=== PATIENT | male | born 1985 | race Caucasian/White ===

== ENCOUNTER 2016-06-17 14:34 | Emergency (ER) | payer MEDICAID, SELFPAY ==
[~2016-06-17 14:34] MED LIST: CIPR25SS PO; FLAG500T OR; PAXI20TA3 PO; TUMS500C OR; no home meds
--- NOTE | 2016-06-17 15:30 | EDDOCDS ---
Physician Documentation [facility] Name: Nabor Melendez Age: 30 yrs Sex: Male : 1985 Arrival Date: 06/17/2016 Time: 14:34 Bed 13 Private MD: NO PRIMARY PHYSICIAN, . Disposition: 06/17/16 15:12 Discharged to Home/Self Care. Impression: Acute upper respiratory infection, unspecified. - Condition is Stable. - Discharge Instructions: Upper Respiratory Infection, Adult, Cough, Adult. - Prescriptions for Doxycycline Hyclate 100 mg Oral Tablet - take 1 tablet by ORAL route every 12 hours; 14 tablet. Mucinex 600 mg Oral - take 1 tablet by ORAL route 2 times per day; 14 tablet. - Medication Reconciliation, Local Pharmacy Hours, Work Release Form - 1 day form. - Follow up: Silvana Youngblood; When: 2 - 3 days; Reason: Recheck today's complaints. - Problem is an ongoing problem. - Symptoms have worsened. - Notes: You were seen in the ED for cough ongoing for the past month. Lung examination was otherwise normal at this time. You may take the antibiotics as written. Use a cough suppressant like Robitussin and a mucolytic like Mucinex as needed. Call your primary doctor to arrange to be seen for recheck this week. Return to the ED for any trouble breathing, fever, or any other concerns. Historical: - Allergies: Sudafed (hallucinate); - Home Meds: 1. methadone 90mg Oral tab once daily - PMHx: Cholecystitis; - PSHx: ortho surgery on fingers; hand fracture repair; - Social history: Smoking status: Patient uses tobacco products, heavy tobacco smoker. No barriers to communication noted, The patient speaks fluent Cymraes, Speaks appropriately for age. - Family history: Not pertinent. - : The pt / caregiver states he / she is not on anticoagulants. Home medication list is obtained from the patient. - Exposure Risk Screening:: None identified. Vital Signs: 06/17 14:36 BP 151 / 88; Pulse 66; Resp 18 S; Temp 98.0(O); Pulse Ox 99% on R/A; Weight 79.38 kg / gr2 175 lbs (R); Height 5 ft. 10 in. (177.80 cm) (R); Pain 4/10; 14:36 Body Mass Index 25.11 (79.38 kg, 177.80 cm) gr2 Signatures: Karen Cueto RN RN jo3 Holger Ortiz MD MD br1 Maria Eugenia Kumar RN RN dsf SANJAYD
--- NOTE | 2016-06-17 15:30 | EDDOCDS ---
Nurse's Notes [facility] Name: Nabor Melendez Age: 30 yrs Sex: Male : 1985 Arrival Date: 06/17/2016 Time: 14:34 Bed 13 Private MD: NO PRIMARY PHYSICIAN, . Diagnosis: Acute upper respiratory infection, unspecified Presentation: 06/17 14:39 Presenting complaint: Patient states: Has a congested cough and nasal infection. Had jo3 some left over amoxicillin and took it but is out. Adult Sepsis Screening: The patient does not have new or worsening altered mentation. Patient's respiratory rate is less than 22. Systolic blood pressure is greater than 100. Patient has a qSOFA score of 0- Negative Sepsis Screen. Suicide/Homicide risk assessment- the patient denies having any suicidal and/or homicidal ideations and does not present with any other emotional, behavioral or mental health complaints. Status: Patient is not a auto servicer or dependent. Transition of care: patient was not received from another setting of care. 14:39 Acuity: MENDY Level 4 jo3 14:39 Method Of Arrival: Walkin/Carried/Asstd jo3 Triage Assessment: 14:40 General: Appears in no apparent distress, Behavior is appropriate for age, cooperative. jo3 HIV screening NA for this visit. Neurological: Level of Consciousness is awake, alert, Oriented to person, place, time. Respiratory: Airway is patent Respiratory effort is even, unlabored. Historical: - Allergies: Sudafed (hallucinate); - Home Meds: 1. methadone 90mg Oral tab once daily - PMHx: Cholecystitis; - PSHx: ortho surgery on fingers; hand fracture repair; - Social history: Smoking status: Patient uses tobacco products, heavy tobacco smoker. No barriers to communication noted, The patient speaks fluent Ecuadorean, Speaks appropriately for age. - Family history: Not pertinent. - : The pt / caregiver states he / she is not on anticoagulants. Home medication list is obtained from the patient. - Exposure Risk Screening:: None identified. Screenin:28 Screening information is obtained from the patient. Fall risk: No risks identified. dsf Assistance ADL's: requires no assistance with activities of daily living. Abuse/DV Screen: The patient / caregiver reports he/she is: not in a situation that causes fear, pain or injury. Nutritional screening: No deficits noted. Advance Directives: Currently, there is no health care proxy. home support is adequate. Assessment: 15:28 Adult Sepsis Screening: The patient does not have new or worsening altered mentation. dsf Patient's respiratory rate is less than 22. Systolic blood pressure is greater than 100. Patient has a qSOFA score of 0- Negative Sepsis Screen. General: Appears in no apparent distress, Behavior is appropriate for age, cooperative. Pain: Denies pain. Neurological: Level of Consciousness is awake, alert, Oriented to person, place, time. Cardiovascular: Capillary refill < 3 seconds Heart tones S1 S2 present. Respiratory: Airway is patent Respiratory effort is even, unlabored, Respiratory pattern is regular, symmetrical, Breath sounds are clear bilaterally. Reports cough that is non-productive, since 1 month ago Denies shortness of breath. GI: Abdomen is non- distended Bowel sounds present X 4 quads. Abd is soft and non tender X 4 quads. Derm: Skin is pink, warm & dry. Vital Signs: 14:36 BP 151 / 88; Pulse 66; Resp 18 S; Temp 98.0(O); Pulse Ox 99% on R/A; Weight 79.38 kg gr2 (R); Height 5 ft. 10 in. (177.80 cm) (R); Pain 4/10; 14:36 Body Mass Index 25.11 (79.38 kg, 177.80 cm) gr2 Vitals: 14:36 Log In Time: June 17, 2016 at 14:36. gr2 ED Course: 14:35 Patient visited by Kumar Oneal. gr2 14:35 NO PRIMARY PHYSICIAN, . is Private Physician. gr2 14:35 Patient moved to Waiting gr2 14:37 Patient visited by Kumar Oneal. gr2 14:37 Patient moved to Pre RCE gr2 14:39 Triage Initiated jo3 14:58 Holger Ortiz MD is Attending Physician. br1 14:58 Patient moved to 13 ck1 15:04 Patient visited by Holger Ortiz MD. br1 15:12 Silvana Youngblood is Referral Physician. br1 15:28 The patient / caregiver is instructed regarding the plan of care and ED course. dsf 15:28 No IV's were initiated during this patient's visit. No procedures done that require dsf assistance. Order Results: There are currently no results for this order. Outcome: 15:12 Discharge ordered by Provider. br1 15:28 Discharge Assessment: Patient awake, alert and oriented x 3. No cognitive and/or dsf functional deficits noted. Patient verbalized understanding of disposition instructions. patient administered narcotics - no. The following High Risk Discharge criteria are identified: None. Discharged to home ambulatory. Condition: stable. Discharge instructions given to patient, Instructed on discharge instructions, follow up and referral plans. medication usage, Demonstrated understanding of instructions, medications, Pt was receptive of discharge instructions/ teaching. Prescriptions given X 2, Work note provided to patient. No special radiology studies were completed. Property sent home with patient. 15:29 Patient left the ED. dsf Signatures: Nanci Ibarra,RN RN ck1 Karen CuetoRN RN ophelia3 Holger Ortiz MD MD br1 Maria Eugenia Kumar RN RN dsf Kumar Oneal gr2 MAGGI
--- NOTE | 2016-06-19 16:30 | EDDOCDS ---
[facility] Notes [facility] Name: Nabro Melendez Age: 30 yrs Sex: Male : 1985 Arrival Date: 06/17/2016 Time: 14:34 Bed 13 Private MD: NO PRIMARY PHYSICIAN, . Diagnosis: Acute upper respiratory infection, unspecified Presentation: 06/17 14:39 Presenting complaint: Patient states: Has a congested cough and nasal infection. Had jo3 some left over amoxicillin and took it but is out. Adult Sepsis Screening: The patient does not have new or worsening altered mentation. Patient's respiratory rate is less than 22. Systolic blood pressure is greater than 100. Patient has a qSOFA score of 0- Negative Sepsis Screen. Suicide/Homicide risk assessment- the patient denies having any suicidal and/or homicidal ideations and does not present with any other emotional, behavioral or mental health complaints. Status: Patient is not a guest services attendant or dependent. Transition of care: patient was not received from another setting of care. 14:39 Acuity: MENDY Level 4 jo3 14:39 Method Of Arrival: Walkin/Carried/Asstd jo3 Triage Assessment: 14:40 General: Appears in no apparent distress, Behavior is appropriate for age, cooperative. jo3 HIV screening NA for this visit. Neurological: Level of Consciousness is awake, alert, Oriented to person, place, time. Respiratory: Airway is patent Respiratory effort is even, unlabored. Historical: - Allergies: Sudafed (hallucinate); - Home Meds: 1. methadone 90mg Oral tab once daily - PMHx: Cholecystitis; - PSHx: ortho surgery on fingers; hand fracture repair; - Social history: Smoking status: Patient uses tobacco products, heavy tobacco smoker. No barriers to communication noted, The patient speaks fluent Luxembourger, Speaks appropriately for age. - Family history: Not pertinent. - : The pt / caregiver states he / she is not on anticoagulants. Home medication list is obtained from the patient. - Exposure Risk Screening:: None identified. Screenin:28 Screening information is obtained from the patient. Fall risk: No risks identified. dsf Assistance ADL's: requires no assistance with activities of daily living. Abuse/DV Screen: The patient / caregiver reports he/she is: not in a situation that causes fear, pain or injury. Nutritional screening: No deficits noted. Advance Directives: Currently, there is no health care proxy. home support is adequate. Assessment: 15:28 Adult Sepsis Screening: The patient does not have new or worsening altered mentation. dsf Patient's respiratory rate is less than 22. Systolic blood pressure is greater than 100. Patient has a qSOFA score of 0- Negative Sepsis Screen. General: Appears in no apparent distress, Behavior is appropriate for age, cooperative. Pain: Denies pain. Neurological: Level of Consciousness is awake, alert, Oriented to person, place, time. Cardiovascular: Capillary refill < 3 seconds Heart tones S1 S2 present. Respiratory: Airway is patent Respiratory effort is even, unlabored, Respiratory pattern is regular, symmetrical, Breath sounds are clear bilaterally. Reports cough that is non-productive, since 1 month ago Denies shortness of breath. GI: Abdomen is non- distended Bowel sounds present X 4 quads. Abd is soft and non tender X 4 quads. Derm: Skin is pink, warm & dry. Vital Signs: 14:36 BP 151 / 88; Pulse 66; Resp 18 S; Temp 98.0(O); Pulse Ox 99% on R/A; Weight 79.38 kg gr2 (R); Height 5 ft. 10 in. (177.80 cm) (R); Pain 4/10; 14:36 Body Mass Index 25.11 (79.38 kg, 177.80 cm) gr2 Vitals: 14:36 Log In Time: June 17, 2016 at 14:36. gr2 ED Course: 14:35 Patient visited by Kumar Oneal. gr2 14:35 NO PRIMARY PHYSICIAN, . is Private Physician. gr2 14:35 Patient moved to Waiting gr2 14:37 Patient visited by Kumar Oneal. gr2 14:37 Patient moved to Pre RCE gr2 14:39 Triage Initiated jo3 14:58 Holger Ortiz MD is Attending Physician. br1 14:58 Patient moved to 13 ck1 15:04 Patient visited by Holger Ortiz MD. br1 15:12 Silvana Youngblood is Referral Physician. br1 15:28 The patient / caregiver is instructed regarding the plan of care and ED course. dsf 15:28 No IV's were initiated during this patient's visit. No procedures done that require dsf assistance. 15:51 [facility] Payment Agreement was scanned into [employer] and attached to record. lg 06/18 12:24 T-Sheet-- Draft Copy was scanned into [employer] and attached to record. gb Order Results: There are currently no results for this order. Outcome: 06/17 15:12 Discharge ordered by Provider. br1 15:28 Discharge Assessment: Patient awake, alert and oriented x 3. No cognitive and/or dsf functional deficits noted. Patient verbalized understanding of disposition instructions. patient administered narcotics - no. The following High Risk Discharge criteria are identified: None. Discharged to home ambulatory. Condition: stable. Discharge instructions given to patient, Instructed on discharge instructions, follow up and referral plans. medication usage, Demonstrated understanding of instructions, medications, Pt was receptive of discharge instructions/ teaching. Prescriptions given X 2, Work note provided to patient. No special radiology studies were completed. Property sent home with patient. 15:29 Patient left the ED. dsf Signatures: Carmen Paez, Reg Reg gb Amy Obrien, Reg Reg lg Nanci Ibarra,RN RN ck1 Karen Cueto,RN RN Holger Owens MD MD br1 Maria Eugenia Kumar RN RN dsf Kumar Oneal gr2 Chart Complete MTDD
--- NOTE | 2016-06-19 16:30 | EDDOCDS ---
Physician Documentation [facility] Name: Nabor Melendez Age: 30 yrs Sex: Male : 1985 Arrival Date: 06/17/2016 Time: 14:34 Bed 13 Private MD: NO PRIMARY PHYSICIAN, . Disposition: 06/17/16 15:12 Discharged to Home/Self Care. Impression: Acute upper respiratory infection, unspecified. - Condition is Stable. - Discharge Instructions: Upper Respiratory Infection, Adult, Cough, Adult. - Prescriptions for Doxycycline Hyclate 100 mg Oral Tablet - take 1 tablet by ORAL route every 12 hours; 14 tablet. Mucinex 600 mg Oral - take 1 tablet by ORAL route 2 times per day; 14 tablet. - Medication Reconciliation, Local Pharmacy Hours, Work Release Form - 1 day form. - Follow up: Silvana Youngblood; When: 2 - 3 days; Reason: Recheck today's complaints. - Problem is an ongoing problem. - Symptoms have worsened. - Notes: You were seen in the ED for cough ongoing for the past month. Lung examination was otherwise normal at this time. You may take the antibiotics as written. Use a cough suppressant like Robitussin and a mucolytic like Mucinex as needed. Call your primary doctor to arrange to be seen for recheck this week. Return to the ED for any trouble breathing, fever, or any other concerns. Historical: - Allergies: Sudafed (hallucinate); - Home Meds: 1. methadone 90mg Oral tab once daily - PMHx: Cholecystitis; - PSHx: ortho surgery on fingers; hand fracture repair; - Social history: Smoking status: Patient uses tobacco products, heavy tobacco smoker. No barriers to communication noted, The patient speaks fluent Cypriot, Speaks appropriately for age. - Family history: Not pertinent. - : The pt / caregiver states he / she is not on anticoagulants. Home medication list is obtained from the patient. - Exposure Risk Screening:: None identified. Vital Signs: 06/17 14:36 BP 151 / 88; Pulse 66; Resp 18 S; Temp 98.0(O); Pulse Ox 99% on R/A; Weight 79.38 kg / gr2 175 lbs (R); Height 5 ft. 10 in. (177.80 cm) (R); Pain 4/10; 14:36 Body Mass Index 25.11 (79.38 kg, 177.80 cm) gr2 MDM: 15:51 [facility] Payment Agreement was scanned into [employer] and attached to record. lg 06/18 12:24 T-Sheet-- Draft Copy was scanned into [employer] and attached to record. gb Signatures: Carmen Paez, Reg Reg gb Amy Obrien, Reg Reg lg Karen Cueto RN RN jo3 Holger Ortiz MD MD br1 Maria Eugenia Kumar RN RN dsf The chart was reviewed and I authenticate all verbal orders and agree with the evaluation and treatment provided.Attachments: 06/17 15:51 [facility] Payment Agreement 06/18 12:24 T-Sheet-- Draft Copy gb Chart Complete MTDD
--- NOTE | 2016-06-19 16:30 | EDDOCDS ---
Physician Documentation [facility] Name: Nabor Melendez Age: 30 yrs Sex: Male : 1985 Arrival Date: 06/17/2016 Time: 14:34 Bed 13 Private MD: NO PRIMARY PHYSICIAN, . Disposition: 06/17/16 15:12 Discharged to Home/Self Care. Impression: Acute upper respiratory infection, unspecified. - Condition is Stable. - Discharge Instructions: Upper Respiratory Infection, Adult, Cough, Adult. - Prescriptions for Doxycycline Hyclate 100 mg Oral Tablet - take 1 tablet by ORAL route every 12 hours; 14 tablet. Mucinex 600 mg Oral - take 1 tablet by ORAL route 2 times per day; 14 tablet. - Medication Reconciliation, Local Pharmacy Hours, Work Release Form - 1 day form. - Follow up: Silvana Youngblood; When: 2 - 3 days; Reason: Recheck today's complaints. - Problem is an ongoing problem. - Symptoms have worsened. - Notes: You were seen in the ED for cough ongoing for the past month. Lung examination was otherwise normal at this time. You may take the antibiotics as written. Use a cough suppressant like Robitussin and a mucolytic like Mucinex as needed. Call your primary doctor to arrange to be seen for recheck this week. Return to the ED for any trouble breathing, fever, or any other concerns. Historical: - Allergies: Sudafed (hallucinate); - Home Meds: 1. methadone 90mg Oral tab once daily - PMHx: Cholecystitis; - PSHx: ortho surgery on fingers; hand fracture repair; - Social history: Smoking status: Patient uses tobacco products, heavy tobacco smoker. No barriers to communication noted, The patient speaks fluent Uruguayan, Speaks appropriately for age. - Family history: Not pertinent. - : The pt / caregiver states he / she is not on anticoagulants. Home medication list is obtained from the patient. - Exposure Risk Screening:: None identified. Vital Signs: 06/17 14:36 BP 151 / 88; Pulse 66; Resp 18 S; Temp 98.0(O); Pulse Ox 99% on R/A; Weight 79.38 kg / gr2 175 lbs (R); Height 5 ft. 10 in. (177.80 cm) (R); Pain 4/10; 14:36 Body Mass Index 25.11 (79.38 kg, 177.80 cm) gr2 MDM: 15:51 [facility] Payment Agreement was scanned into [employer] and attached to record. lg 06/18 12:24 T-Sheet-- Draft Copy was scanned into [employer] and attached to record. gb Signatures: Carmen Paez, Reg Reg gb Amy Obrien, Reg Reg lg Karen Cueto RN RN jo3 Holger Ortiz MD MD br1 Maria Eugenia Kumar RN RN dsf The chart was reviewed and I authenticate all verbal orders and agree with the evaluation and treatment provided.Attachments: 06/17 15:51 [facility] Payment Agreement 06/18 12:24 T-Sheet-- Draft Copy gb Chart Complete MTDD
== END 2016-06-17 15:29 | disposition home or self-care (01) ==
LOC: M ED 14:34
DX: J06.9 Acute upper respiratory infection, unspecified (principal); K81.1 Chronic cholecystitis; Z79.899 Other long term (current) drug therapy; F17.210 Nicotine dependence, cigarettes, uncomplicated; Z88.8 Allergy status to other drugs, medicaments and biological substances

== ENCOUNTER 2016-09-04 12:15 | Emergency (ER) | payer OTHER, SELFPAY ==
[~2016-09-04] VITALS: Ht 177.8 cm; Wt 81.6 kg
[2016-09-04 12:15] VITALS: BP 122/89
[2016-09-04] MEDS ORDERED: METH10TA2 PO (12:30)
[2016-09-04] MEDS ORDERED: CLEO300C2 PO (13:02)
[2016-09-04] MEDS ORDERED: IBUP600T26 PO (13:02)
== END 2016-09-04 13:55 | disposition home or self-care (01) ==
LOC: M ED 13:19
DX: K04.4 Acute apical periodontitis of pulpal origin (principal); F17.210 Nicotine dependence, cigarettes, uncomplicated; Z88.0 Allergy status to penicillin; Z88.8 Allergy status to other drugs, medicaments and biological substances; Z79.899 Other long term (current) drug therapy; J45.909 Unspecified asthma, uncomplicated

== ENCOUNTER 2016-12-04 14:28 | Emergency (ER) | payer MEDICAID, OTHER ==
[~2016-12-04] VITALS: Ht 177.8 cm; Wt 78.7 kg
[~2016-12-04 14:28] MED LIST changes: +CLEO300C2 PO; +IBUP-1022 PO; +METH10TA2 PO
[2016-12-04 14:29] VITALS: BP 134/78
[2016-12-04] MEDS ORDERED: CIPROFLOXACIN HC OTIC SUSPENSION AD ONE (15:00)
[2016-12-04] MEDS ORDERED: CLINDAMYCIN 150 MG CAP PO ONE (15:00)
[2016-12-04] MEDS ORDERED: CLEO300C2 PO (15:02)
== END 2016-12-04 15:28 | disposition home or self-care (01) ==
LOC: M ED 14:28
DX: H92.01 Otalgia, right ear (principal); H60.11 Cellulitis of right external ear; I10 Essential (primary) hypertension; J45.909 Unspecified asthma, uncomplicated; F41.9 Anxiety disorder, unspecified; F17.200 Nicotine dependence, unspecified, uncomplicated; Z79.899 Other long term (current) drug therapy; Z88.0 Allergy status to penicillin; Z88.1 Allergy status to other antibiotic agents; Z88.8 Allergy status to other drugs, medicaments and biological substances

== ENCOUNTER → 2017-05-06 | Outpatient (CLI) | payer OTHER ==
[2017-05-06 18:50] LABS: MEAN CORPUSCULAR HEMOGLOBIN 29.1 pg (27.0-33.0); MEAN CORPUSCULAR HGB CONC 33.3 g/dl (32.0-36.5); MEAN CORPUSCULAR VOLUME 87.2 fl (80.0-96.0); PLATELET COUNT, AUTOMATED 251 10^3/uL (150-450); RED CELL DISTRIBUTION WIDTH 12.6 % (11.5-14.5); WHITE BLOOD COUNT 7.4 10^3/uL (4.0-10.0)
[2017-05-06 19:05] LABS: ALBUMIN 4.4 GM/DL (3.2-5.2); ALBUMIN/GLOBULIN RATIO 1.07 (1.00-1.93); ALKALINE PHOSPHATASE 100 U/L (45-117); ALT/SGPT 58 U/L (12-78); ANION GAP 6 MEQ/L (8-16); AST/SGOT 44 U/L (7-37); BILIRUBIN,TOTAL 0.3 MG/DL (0.2-1.0); BLOOD UREA NITROGEN 13 MG/DL (7-18); CALCIUM LEVEL 9.4 MG/DL (8.5-10.1); CARBON DIOXIDE LEVEL 32 MEQ/L (21-32); CHLORIDE LEVEL 100 MEQ/L (98-107); CREATININE FOR GFR 0.94 MG/DL (0.70-1.30); GLOMERULAR FILTRATION RATE > 60.0 (>60); GLUCOSE, FASTING 62 MG/DL (70-105); SODIUM LEVEL 138 MEQ/L (136-145); TOTAL PROTEIN 8.5 GM/DL (6.4-8.2)
== END ==
LOC: M LAB 16:59
PROVIDERS: ATTEND Family Medicine
DX: F11.29 Opioid dependence with unspecified opioid-induced disorder (principal)

== ENCOUNTER → 2017-07-21 | Outpatient (CLI) | payer OTHER | LOC: M EKG 11:46 | DX: F11.20 Opioid dependence, uncomplicated (principal) | CPT/HCPCS: 93005 ==

== ENCOUNTER → 2018-01-21 | Outpatient (CLI) | payer OTHER ==
[2018-01-21 18:14] LABS: BASO % 0.5 % (0.0-1.0); EOS # 0.1 10^3/uL (0.0-0.50); EOS % 2.2 % (0.0-3.0); HEMATOCRIT 43.4 % (42.0-52.0); HEMOGLOBIN 14.5 g/dl (13.5-17.5); IMMATURE GRANULOCYTE % 0.2 % (0-3.0); LYMPH # 2.4 10^3/uL (1.5-4.5); LYMPH % 41.1 % (24.0-44.0); MEAN CORPUSCULAR HEMOGLOBIN 29.5 pg (27.0-33.0); MEAN CORPUSCULAR HGB CONC 33.4 g/dl (32.0-36.5); MEAN CORPUSCULAR VOLUME 88.4 fl (80.0-96.0); MONO # 0.4 10^3/uL (0.0-0.8); MONO % 5.9 % (0.0-5.0); NEUTROPHILS % 50.1 % (36.0-66.0); PLATELET COUNT, AUTOMATED 244 10^3/uL (150-450); RED BLOOD COUNT 4.91 10^6/uL (4.30-6.10); RED CELL DISTRIBUTION WIDTH 13.1 % (11.5-14.5); WHITE BLOOD COUNT 5.9 10^3/uL (4.0-10.0)
[2018-01-24 10:16] LABS: HEPATITIS B SURFACE ANTIBODY NEGATIVE (POSITIVE)
[2018-01-27 14:17] LABS: HEPATITIS A IgG TOTAL Positive (Negative); HEPATITIS B CORE ANTIBODY IGG Negative (Negative); HEPATITIS C QUANTITATION 23110 IU/mL (.); HEPATITIS C VIRUS GENOTYPE 3 (.)
== END ==
LOC: M SMT 14:48
DX: B18.2 Chronic viral hepatitis C (principal)
CPT/HCPCS: 86706

== ENCOUNTER → 2018-01-24 | Outpatient (REF) | payer OTHER ==
[2018-01-24 21:47] LABS: FREE T4 1.02 NG/DL (0.76-1.46)
[2018-01-27 00:08] LABS: HEPATITIS C QUANTITATION 11090 IU/mL (.)
== END ==
LOC: M SFHCPLAZ 12:43
DX: B18.2 Chronic viral hepatitis C (principal); R53.82 Chronic fatigue, unspecified

== ENCOUNTER → 2018-04-18 | Outpatient (REF) | payer OTHER ==
[2018-04-18 16:21] LABS: ALBUMIN 3.9 GM/DL (3.2-5.2); ALBUMIN/GLOBULIN RATIO 1.03 (1.00-1.93); ALKALINE PHOSPHATASE 109 U/L (45-117); ALT/SGPT 28 U/L (12-78); AST/SGOT 20 U/L (7-37); BILIRUBIN,DIRECT 0.2 MG/DL (0.0-0.2); BILIRUBIN,TOTAL 0.5 MG/DL (0.2-1.0); TOTAL PROTEIN 7.7 GM/DL (6.4-8.2)
[2018-04-20 10:28] LABS: HEPATITIS B SURFACE ANTIBODY POSITIVE (POSITIVE)
[2018-04-21 08:06] LABS: ALPHA 2-MACROGLOBULIN 229 mg/dL (110-276); ALT 22 IU/L (0-55); APOLIPOPROTEIN A-1 118 mg/dL (101-178); FIBROSIS SCORE 0.24 (0.00-0.21); FIBROSIS STAGE F0-F1 (.); GGT 42 IU/L (0-65); HAPTOGLOBIN 155 mg/dL (34-200); HEPATITIS C QUANTITATION HCV Not Detected IU/mL (.); NECROINFLAM SCORE 0.09 (0.00-0.17); NECROINFLAMM GRADE A0-No activity (.); TOTAL BILIRUBIN 0.5 mg/dL (0.0-1.2)
== END ==
LOC: M SFHCPLAZ 13:58
DX: B18.2 Chronic viral hepatitis C (principal)
CPT/HCPCS: 84460

== ENCOUNTER 2018-04-21 14:21 | Emergency (ER) | payer OTHER | END 2018-04-21 14:54 | disposition home or self-care (01) | LOC: M ED 14:21 | DX: H66.93 Otitis media, unspecified, bilateral (principal) | CPT/HCPCS: 99282 ==

== ENCOUNTER → 2018-06-07 | Outpatient (CLI) | payer OTHER ==
[~2018-06-07] MED LIST changes: +AUGM875T28 PO; +FLON1SPR NARES; +PROB250C PO
--- NOTE | 2018-06-07 19:34 | ECGEPIP ---
Stationary ECG Study [facility] Test Date: 2018-06-07 Pat Name: DANIEL MARTIN Department: Room: - Gender: M Mission Commander: [facility] : 1985 Requested By: Yoandy Gonzalez Order Number: [id number] Reading MD: Adeel Dahl Measurements Intervals [place] Rate: 62 P: 56 W[place]: 156 QRS: 58 QRSD: 88 T: 43 QT: 422 QTc: 430 Interpretive Statements Normal sinus rhythm Early repolarization No significant change when compared to prior tracing of 07/21/2017 Electronically Signed On 06-07-2018 19:34:37 EST by Adeel Dahl
== END ==
LOC: M EKG 12:12
PROVIDERS: ATTEND Family Medicine
DX: F11.20 Opioid dependence, uncomplicated (principal)

== ENCOUNTER → 2018-07-26 | Outpatient (REF) | payer OTHER ==
[2018-07-26 16:13] LABS: ALBUMIN 3.9 GM/DL (3.2-5.2); BILIRUBIN,DIRECT 0.1 MG/DL (0.0-0.2); BILIRUBIN,TOTAL 0.5 MG/DL (0.2-1.0); TOTAL PROTEIN 7.5 GM/DL (6.4-8.2)
[2018-07-29 14:26] LABS: HEPATITIS C QUANTITATION HCV Not Detected IU/mL (.)
== END ==
LOC: M SFHCPLAZ 13:23
PROVIDERS: ATTEND Internal Medicine Infectious Disease
DX: B18.2 Chronic viral hepatitis C (principal)

== ENCOUNTER 2018-09-08 10:33 | Emergency (ER) | payer OTHER ==
[~2018-09-08] VITALS: Ht 177.8 cm; Wt 84.8 kg
[2018-09-08 10:33] VITALS: BP 127/78
[2018-09-08] MEDS ORDERED: ALBUTEROL SULFATE 2.5 MG/0.5 ML INH NEB SOLN NEB ONE (11:15)
[2018-09-08] MEDS ORDERED: IBUPROFEN 800 MG TAB PO ONE (11:15)
[2018-09-08 11:36] LABS: INFLUENZA A AMPLIFICATION NEGATIVE (NEGATIVE); INFLUENZA B AMPLIFICATION NEGATIVE (NEGATIVE)
--- NOTE | 2018-09-08 11:54 | REP ---
Chest two views HISTORY: Cough Comparison: 01/28/2008 Patchy density is present in the left lower lobe consistent with atelectasis or infiltrate. A 1.7 cm parenchymal nodule is present overlying the knee anterior left thorax seen only in the lateral view. The heart is normal in size. The pulmonary vasculature is normal in appearance. The bony structure is intact. IMPRESSION: 1. Left lower lobe atelectasis or infiltrate. 2. There is a 1.7 cm parenchymal nodule seen only in the lateral radiograph. CT of the chest may be helpful for further evaluation. Electronically Signed by David Lee MD 09/08/2018 11:45 A
[2018-09-08] MEDS ORDERED: ZITHTAB PO (12:13)
[2018-09-08] MEDS ORDERED: VENTAER INH (12:14)
--- NOTE | 2018-09-08 12:55 | ED PDOC ---
Post-Departure Follow-Up [facility] faxed formal report of cxr for fu alexusg Dandy Georges MD Sep 08, 2018 12:55
== END 2018-09-08 12:22 | disposition home or self-care (01) ==
LOC: M ED 10:33
DX: J18.9 Pneumonia, unspecified organism (principal); R51 Headache; I10 Essential (primary) hypertension; J45.909 Unspecified asthma, uncomplicated; F41.9 Anxiety disorder, unspecified; B19.20 Unspecified viral hepatitis C without hepatic coma; Z88.8 Allergy status to other drugs, medicaments and biological substances; Z88.0 Allergy status to penicillin; Z87.442 Personal history of urinary calculi; Z79.899 Other long term (current) drug therapy; F17.210 Nicotine dependence, cigarettes, uncomplicated

== ENCOUNTER 2018-09-12 10:21 | Emergency (ER) | payer OTHER ==
[~2018-09-12] VITALS: Ht 177.8 cm; Wt 84.0 kg
[~2018-09-12 10:21] MED LIST changes: +VENTAER INH; +ZITHTAB PO
[2018-09-12] MEDS ORDERED: IBUPROFEN 800 MG TAB PO ONE (11:15)
--- NOTE | 2018-09-12 11:41 | REP ---
Chest two views HISTORY: Left lower lobe infiltrate Comparison: 09/08/2018 The density is present in the left lower lobe consistent with an infiltrate that is increased compared to the previous study. The right lung is clear. The heart is normal in size. The pulmonary vasculature is normal in appearance. The bony structure is intact. IMPRESSION: Left lower lobe infiltrate increased compared to the previous study. Electronically Signed by David Lee MD 09/12/2018 11:33 A
[2018-09-12 11:54] VITALS: BP 123/71
[2018-09-12] MEDS ORDERED: DOXY100C PO (12:00)
[2018-09-12] MEDS ORDERED: TESS100C PO (12:00)
[2018-09-12] MEDS ORDERED: IBUP80TA PO (12:11)
== END 2018-09-12 12:13 | disposition home or self-care (01) ==
LOC: M ED 10:21
DX: J18.9 Pneumonia, unspecified organism (principal); I10 Essential (primary) hypertension; B18.2 Chronic viral hepatitis C; J45.909 Unspecified asthma, uncomplicated; F17.210 Nicotine dependence, cigarettes, uncomplicated; F11.20 Opioid dependence, uncomplicated; Z88.0 Allergy status to penicillin; Z88.8 Allergy status to other drugs, medicaments and biological substances; Z79.51 Long term (current) use of inhaled steroids

== ENCOUNTER 2019-01-24 12:29 | Emergency (ER) | payer OTHER ==
[~2019-01-24] VITALS: Ht 177.8 cm; Wt 86.2 kg
[~2019-01-24 12:29] MED LIST changes: +DOXY100C PO; +IBUP80TA PO; +TESS100C PO
[2019-01-24 12:30] VITALS: BP 142/86
[2019-01-24] MEDS ORDERED: AMOX500C PO (13:24)
[2019-01-24] MEDS ORDERED: CLAR10CA3 PO (13:24)
== END 2019-01-24 13:41 | disposition home or self-care (01) ==
LOC: M ED 12:29
DX: J06.9 Acute upper respiratory infection, unspecified (principal); K04.7 Periapical abscess without sinus; J45.909 Unspecified asthma, uncomplicated; F17.200 Nicotine dependence, unspecified, uncomplicated; F41.9 Anxiety disorder, unspecified; Z79.51 Long term (current) use of inhaled steroids; Z79.899 Other long term (current) drug therapy; Z88.1 Allergy status to other antibiotic agents; Z88.8 Allergy status to other drugs, medicaments and biological substances

== ENCOUNTER 2019-02-15 13:05 | Emergency (ER) | payer OTHER ==
[~2019-02-15] VITALS: Ht 177.8 cm; Wt 86.3 kg
[~2019-02-15 13:05] MED LIST changes: +AMOX500C PO; +CLAR10CA3 PO
[2019-02-15 13:06] VITALS: BP 157/96
[2019-02-15] MEDS ORDERED: NON-325T5 PO (13:13)
[2019-02-15] MEDS ORDERED: ACET-683 PO (13:13)
[2019-02-15] MEDS ORDERED: ACETAMINOPHEN 500 MG TAB PO ONE (16:00)
[2019-02-15] MEDS ORDERED: BENZOCAINE 20% GEL 9GM TUBE (ANBESOL MAX STRENGTH) TOP ONE (16:00)
[2019-02-15] MEDS: LIDOCAINE 2% W/ EPINEPHRINE 1.7 ML DENTAL INJ SM ONE ×2 (16:22→16:27)
[2019-02-15] MEDS ORDERED: AMOX500C PO (16:30)
[2019-02-15] MEDS ORDERED: MAGICMW SSP (16:30)
--- NOTE | 2019-02-15 17:10 | REP ---
Chest x-ray: Two views. History: Chronic cough. Comparison chest x-ray: September 12, 2018. Findings: The lungs are symmetrically aerated and clear. The previously noted infiltrate in the left lower lobe has resolved. Pulmonary vasculature is not increased. Pleural angles are sharp. Heart size is normal. Impression: No acute disease. Electronically Signed by Christian Harding MD 02/16/2019 08:00 A
== END 2019-02-15 16:36 | disposition home or self-care (01) ==
LOC: M ED 13:05
DX: R05 Cough (principal); K02.9 Dental caries, unspecified; K04.7 Periapical abscess without sinus; I10 Essential (primary) hypertension; F17.218 Nicotine dependence, cigarettes, with other nicotine-induced disorders; J45.909 Unspecified asthma, uncomplicated; F11.10 Opioid abuse, uncomplicated; Z88.0 Allergy status to penicillin; Z88.8 Allergy status to other drugs, medicaments and biological substances

== ENCOUNTER → 2019-06-11 | Outpatient (CLI) | payer OTHER ==
[~2019-06-11] MED LIST changes: +ACET-683 PO; +MAGICMW SSP; +NON-325T5 PO
[2019-06-11 13:05] LABS: HEMATOCRIT 45.8 % (42.0-52.0); HEMOGLOBIN 14.6 g/dl (13.5-17.5); MEAN CORPUSCULAR HEMOGLOBIN 28.6 pg (27.0-33.0); MEAN CORPUSCULAR HGB CONC 31.9 g/dl (32.0-36.5); MEAN CORPUSCULAR VOLUME 89.8 fl (80.0-96.0); PLATELET COUNT, AUTOMATED 224 10^3/uL (150-450); WHITE BLOOD COUNT 5.4 10^3/uL (4.0-10.0)
[2019-06-11 13:28] LABS: ALBUMIN 4.3 GM/DL (3.2-5.2); ALT/SGPT 16 U/L (12-78); BILIRUBIN,TOTAL 0.5 MG/DL (0.2-1.0); BLOOD UREA NITROGEN 12 MG/DL (7-18); CALCIUM LEVEL 9.4 MG/DL (8.5-10.1); CARBON DIOXIDE LEVEL 33 MEQ/L (21-32); CHLORIDE LEVEL 105 MEQ/L (98-107); CREATININE FOR GFR 1.32 MG/DL (0.70-1.30); GLOMERULAR FILTRATION RATE > 60.0 (>60); GLUCOSE, FASTING 78 MG/DL (70-100); POTASSIUM SERUM 4.2 MEQ/L (3.5-5.1); SODIUM LEVEL 139 MEQ/L (136-145); TOTAL PROTEIN 7.8 GM/DL (6.4-8.2)
[2019-06-11 14:42] LABS: CHLAMYDIA DNA AMPLIFICATION NEGATIVE (NEGATIVE); GC DNA AMPLIFICATION NEGATIVE (NEGATIVE)
--- NOTE | 2019-06-11 16:27 | ECGEPIP ---
[facility] Test Date: 2019-06-11 Pat Name: DANIEL MARTIN Department: Room: - Gender: Male Country Director: [place] : 1985 Requested By: Yoandy Gonzalez Order Number: [id number] Reading MD: Adeel Dahl Measurements Intervals [place] Rate: 60 P: 57 ND: 137 QRS: 65 QRSD: 92 T: 49 QT: 404 QTc: 406 Interpretive Statements Normal sinus rhythm Early repolarization No significant change when compared to prior tracing of 06/07/2018 Electronically Signed on 06-11-2019 16:27:07 EST by Adeel Dahl
[2019-06-12 10:56] LABS: HEPATITIS B SURFACE ANTIGEN NEGATIVE (NEGATIVE)
[2019-06-12 11:24] LABS: HIV 1&2 SCREEN CENTAUR NEGATIVE (NEGATIVE)
[2019-06-12 12:58] LABS: HEPATITIS C VIRUS ABY INDEX > 11.0 INDEX (<0.8)
== END ==
LOC: M LAB 12:24
PROVIDERS: ATTEND Family Medicine
DX: F11.20 Opioid dependence, uncomplicated (principal)

== ENCOUNTER → 2020-12-10 | Outpatient (CLI) | payer OTHER ==
[~2020-12-10] MED LIST changes: +ACET32TAB PO; -NON-325T5 PO
--- NOTE | 2020-12-10 10:54 | REP ---
INDICATION: WHEEZING. COMPARISON: 02/15/2019 TECHNIQUE: PA and lateral FINDINGS: The superior mediastinal structures are midline. The cardiac silhouette is unremarkable in size, shape, and position. The diaphragmatic surfaces of the lungs are regular, and the costophrenic angles are clear. The pulmonary dimas are clear. The imaged osseous structures are intact. IMPRESSION: There is no acute cardiopulmonary disease. <Electronically signed by Maximino Amador > 12/10/20 [id number]
[2020-12-10 13:48] LABS: HEMATOCRIT 49.6 % (42.0-52.0); HEMOGLOBIN 15.9 g/dl (13.5-17.5); MEAN CORPUSCULAR HEMOGLOBIN 28.8 pg (27.0-33.0); MEAN CORPUSCULAR HGB CONC 32.1 g/dl (32.0-36.5); MEAN CORPUSCULAR VOLUME 89.7 fl (80.0-96.0); PLATELET COUNT, AUTOMATED 266 10^3/uL (150-450); RED BLOOD COUNT 5.53 10^6/uL (4.30-6.10); WHITE BLOOD COUNT 5.9 10^3/uL (4.0-10.0)
[2020-12-10 14:02] LABS: ALBUMIN 4.1 GM/DL (3.2-5.2); ALT/SGPT 42 U/L (12-78); BILIRUBIN,TOTAL 0.2 MG/DL (0.2-1.0); BLOOD UREA NITROGEN 10 MG/DL (7-18); CALCIUM LEVEL 10.7 MG/DL (8.5-10.1); CARBON DIOXIDE LEVEL 31 MEQ/L (21-32); CHLORIDE LEVEL 106 MEQ/L (98-107); CREATININE FOR GFR 1.04 MG/DL (0.70-1.30); GLOMERULAR FILTRATION RATE > 60.0 (>60); GLUCOSE, FASTING 89 MG/DL (70-100); POTASSIUM SERUM 5.4 MEQ/L (3.5-5.1); SODIUM LEVEL 141 MEQ/L (136-145); TOTAL PROTEIN 7.9 GM/DL (6.4-8.2)
== END ==
LOC: M PLAIMG 09:47
PROVIDERS: ATTEND Nurse Practitioner Adult Health
DX: R06.2 Wheezing (principal)

== ENCOUNTER → 2021-10-08 | Outpatient (REF) | payer OTHER ==
[~2021-10-08] MED LIST changes: -DOXY100C PO; +DOXY100C3 PO; +METH-1177 PO; -METH10TA2 PO
[2021-10-08 16:22] LABS: RSV AMPLIFICATION NEGATIVE (NEGATIVE)
== END ==
LOC: M WUC 15:06
PROVIDERS: ATTEND Physician Assistant
DX: J20.9 Acute bronchitis, unspecified (principal)

== ENCOUNTER 2023-02-01 10:30 | Emergency (ER) | payer OTHER ==
[~2023-02-01] VITALS: Ht 177.8 cm; Wt 76.3 kg
[2023-02-01 10:32] VITALS: BP 135/81; TEMP 96.9; O2SAT 100
== END 2023-02-01 13:03 | disposition home or self-care (01) ==
LOC: M ED 10:30
DX: S01.01XA Laceration without foreign body of scalp, initial encounter (principal); S06.0X0A Concussion without loss of consciousness, initial encounter; H70.10 Chronic mastoiditis, unspecified ear; W22.8XXA Striking against or struck by other objects, initial encounter; I10 Essential (primary) hypertension; J45.909 Unspecified asthma, uncomplicated; F17.200 Nicotine dependence, unspecified, uncomplicated; Y99.0 Civilian activity done for income or pay; Z88.1 Allergy status to other antibiotic agents; Z88.8 Allergy status to other drugs, medicaments and biological substances

== ENCOUNTER 2023-12-12 23:16 | Emergency (ER) | payer OTHER ==
[~2023-12-12] VITALS: Ht 177.8 cm; Wt 84.9 kg
[2023-12-12 23:17] VITALS: BP 145/84; TEMP 99.2; O2SAT 98
[2023-12-12] MEDS ORDERED: METH10CO PO (23:23)
== END 2023-12-13 01:39 | disposition left against medical advice (07) ==
LOC: M ED 23:16
DX: Z53.21 Procedure and treatment not carried out due to patient leaving prior to being seen by health care provider (principal)

== ENCOUNTER → 2024-12-25 | Outpatient (CLI) | payer OTHER ==
[~2024-12-25] MED LIST changes: +METH10CO PO
[2024-12-25 11:19] LABS: PLATELET COUNT, AUTOMATED 255 10^3/uL (150-450)
[2024-12-25 11:56] LABS: ALT/SGPT 90 U/L (7.0-40); AST/SGOT 74 U/L (<34); CALCIUM LEVEL 9.9 MG/DL (8.5-10.1); CARBON DIOXIDE LEVEL 30 MMOL/L (20-31); CHLORIDE LEVEL 107 MMOL/L (98-107); CREATININE FOR GFR 1.03 MG/DL (0.70-1.30); GLOMERULAR FILTRATION RATE > 90.0 (>60); POTASSIUM SERUM 5.0 MMOL/L (3.5-5.1); SODIUM LEVEL 142 MMOL/L (136-145)
[2024-12-25 12:21] LABS: HIV 1&2 SCREEN NEGATIVE (NEGATIVE)
[2024-12-25 13:02] LABS: HEPATITIS C VIRUS ABY INDEX > 11.00 INDEX (<0.8)
[2024-12-26 22:22] LABS: HCV RNA QUANTITATION <15 NOT DETECTED IU/mL (NOT DETECTED); HCV RNA log10 <1.18 NOT DETECTED Log IU/mL (NOT DETECTED)
== END ==
LOC: M LAB 10:13
PROVIDERS: ATTEND Family Medicine
DX: F11.20 Opioid dependence, uncomplicated (principal)